=== PATIENT | female | born 2000 | race Caucasian/White ===

== ENCOUNTER 2022-02-09 17:15 | Emergency (ER) | payer BC, SELFPAY ==
[2022-02-09 17:16] VITALS: BP 114/67; PULSE 75; RESP 16; TEMP 37.1; O2SAT 98; BMI 33.6
--- NOTE | 2022-02-09 17:41 | EDS_ITS ---
HPI <HOLLAND Mead - Last Filed: 02/09/22 18:18> History of Present Illness Chief Complaint: Abscess Narrative Narrative: Patient noted bloody and sometimes purulent drainage in her underwear for the last 3 to 4 weeks. Today she noticed an area of swelling in her gluteal cleft. Her mom pushed on it and expressed purulent drainage. She went to the [facility] and a cleansed the area and applied a bandage and sent her to the ER. Patient denies any history of similar symptoms. She is having normal bladder and bowel movements. No history of bloody or loose stools. PFSH <HOLLAND Mead - Last Filed: 02/09/22 18:18> PFSH Medical History no medical history Home Medications guanfacine 3 mg tablet,extended release 24 hr 3 mg PO DAILY 02/09/22 [History Last Taken Unknown] lisdexamfetamine 60 mg capsule (Vyvanse) 60 mg PO DAILY 02/09/22 [History Last Taken Unknown] sertraline 25 mg tablet 30 mg PO DAILY 02/09/22 [History Last Taken Unknown] sulfamethoxazole 800 mg-trimethoprim 160 mg tablet 1 tab PO BID #20 TABLETS 02/09/22 [Rx Last Taken Unknown] Allergy/AdvReac Type Severity Reaction Status Date / Time No Known Allergies Allergy Verified 02/09/22 17:18 Surgical History no surgical history Social History Smoking Status: Never smoker ROS <HOLLAND Mead - Last Filed: 02/09/22 18:18> ROS ED ROS Narrative Constitutional: Negative for fever, chills, malaise. Eyes: Negative for visual change. ENT: Negative for sore throat, ear pain, rhinorrhea. CVS: Negative for palpitations, chest pain, syncope. Respiratory: Negative for shortness of breath, cough, orthopnea. GI: Negative for abdominal pain, nausea, vomiting, diarrhea, constipation, melena, hematochezia. : Negative for dysuria, hematuria or frequency. Neuro: Negative for headache. Skin: Negative for rash, abscess, or wound. Musc: Negative for joint pain, swelling, trauma. Heme: Negative for easy bruising, bleeding, lymphadenopathy. EXAM <HOLLAND Mead Last Filed: 02/09/22 18:18> Physical Exam Narrative Exam Narrative: CONST: Patient sitting in no acute distress. EYES: Normal inspection. NECK: Normal inspection. RESP: No respiratory distress, CTAB. CVS: Regular rate and rhythm, no murmur, no gallop. ABD: Soft and nontender, no guarding or rebound, nondistended. JANEL: In the midline gluteal cleft there is a pinhole opening. There is no surrounding erythema. No tenderness to palpation and no drainage is expressed. The external anal sphincter itself appears normal. EXTREMITIES: Normal appearance, no pedal edema. NEURO: Oriented x4. PSYCH: Normal affect. Const Vital Signs: 02/09/22 17:16 Temperature 98.7 F Temperature Source Temporal Pulse Rate 75 Respiratory Rate 16 Blood Pressure 114/67 Blood Pressure Mean 82 Pulse Ox 98 Oxygen Delivery Method Room Air <Dr. Lele Hollingsworth MD - Last Filed: 02/09/22 18:37> Physical Exam Const Vital Signs: 02/09/22 17:16 Temperature 98.7 F Temperature Source Temporal Pulse Rate 75 Respiratory Rate 16 Blood Pressure 114/67 Blood Pressure Mean 82 Pulse Ox 98 Oxygen Delivery Method Room Air GI GI Narrative: Agree with above, but I am able to express purulent material, scant amount of it, from the opening that is present already. Mildly tender. [facility] <HOLLAND Mead - Last Filed: 02/09/22 18:18> [facility] Narrative Medical decision making narrative: Patient appears to have a pinhole opening or tract where a previous pilonidal cyst drained. Its in the midline gluteal cleft. Mom states she had expressed purulent drainage earlier today. Right now there is no fluid expressible no surrounding signs of cellulitis. No indication for antibiotics. She will be referred to general surgery for outpatient management and was given return precautions. <Dr. Lele Hollingsworth MD - Last Filed: 02/09/22 18:37> [facility] Narrative Medical decision making narrative: Patient appears to have a pinhole opening or tract where a previous pilonidal cyst drained. Its in the midline gluteal cleft. Mom states she had expressed purulent drainage earlier today. Right now there is no fluid expressible no surrounding signs of cellulitis. No indication for antibiotics. She will be referred to general surgery for outpatient management and was given return precautions. Seen and evaluated independently and in conjunction with physician blacksmith assistant. Agree with notes above unless documented otherwise. Patient is well-appearing. There is some purulent discharge expressible from the opening, and I agree that this is a pilonidal abscess that is mostly drained it does not require incision and drainage at this time. I think doing sitz bath and placing her on antibiotic would be reasonable. Referred to surgery as an outpatient, parents are here and suggest possibly having her follow-up with general surgery or colorectal at home since she has winter break in 3 weeks which I think would also be reasonable. Discharge Plan Triage Chief Complaint: Abscess ED Midlevel Provider: Iman Pugh ED Provider: Lele Hollingsworth Dx/Rx/DC Orders Clinical Impression: Pilonidal abscess Instructions: Taking a Sitz Bath, ED Cyst Pilonidal Infec Abx Only Prescriptions: New sulfamethoxazole-trimethoprim [sulfamethoxazole-trimethoprim] 800-160 mg tablet 1 tab PO BID Qty: 20 0RF No Action sertraline 25 mg Tablet 30 mg PO DAILY Vyvanse 60 mg Capsule 60 mg PO DAILY guanfacine 3 mg Tablet Extended Release 24 Hr 3 mg PO DAILY Primary Care Provider: [facility] ,Out of Referrals: Jason Lepe MD [Med Staff - Active Staff] - [facility] Doctor,Out of [Primary Care Provider] - Activity Restrictions/Additional Instructions: Call for an appointment with the general surgeon. Soak in warm soapy water 1-2 times per day for as long as needed until no more drainage on the dressing. Keep area clean, change dressing at least twice daily, you may stop when there is no more discharge and you do not need to do sits baths anymore. If worsening return to the ER. Disposition Disposition: Home, Self Care
[2022-02-09] MEDS: Smz/Tmp Ds Tablet 1 TABLET PO (18:43)
== END 2022-02-09 18:46 | disposition home or self-care (01) ==
LOC: ED 18:36
PROVIDERS: Emergency Provider Emergency Medicine; PCP Pediatrics; Visit Provider Emergency Medicine
DX: L05.01 Pilonidal cyst with abscess (principal); Z79.899 Other long term (current) drug therapy
CPT/HCPCS: 99283

== ENCOUNTER 2022-03-10 16:29 | Emergency (ER) | payer BC, SELFPAY ==
[2022-03-10 16:33] VITALS: BP 153/136; PULSE 107; RESP 18; TEMP 36.5; O2SAT 97; BMI 32.8
--- NOTE | 2022-03-10 17:05 | EX.ED.VIS.PS ---
HPI HPI - Psych History of Present Illness Chief Complaint: Suicidal Informant: patient and friend Narrative Narrative: Patient presents to the emergency department. I asked her why she here and she says she does not have any idea. She does not remember. She has trouble remembering. She has a friend come and that helps her. Evidently the patient had a nervous breakdown in her Hungarian class today. She was sent to [facility] counseling. There were concerns of flight of ideas and suicidal thoughts and she was sent here. Patient does have a history of ADHD. She is on meds for this. She takes them sporadically. She does admit to poor sleep recently but also has a chronic history of poor sleep. She admits to some thoughts of suicide but no specific plan. But there were mentions of jumping in front of a car at the college counselor's office. It does not sound like she has been using any drugs or spending money or doing abnormal activities. I do not get a report of a history of roopa although her story sounds like she has been having some problems with this recently. She is not focusing. She is not making appointments. She is forgetting what she has to do. She has had these problems long-term for years but they are worse since starting college. She is not having any headache or focal complaints. PFSH PFSH Home Medications guanfacine 3 mg tablet,extended release 24 hr 3 mg PO DAILY 02/09/22 [History Last Taken Unknown] lisdexamfetamine 60 mg capsule (Vyvanse) 60 mg PO DAILY 02/09/22 [History Last Taken Unknown] sertraline 25 mg tablet 30 mg PO DAILY 02/09/22 [History Last Taken Unknown] Allergy/AdvReac Type Severity Reaction Status Date / Time No Known Allergies Allergy Verified 03/10/22 17:54 Social History Smoking Status: Never smoker ROS ROS ED Constitutional Constitutional ED: Denies chills or fever(s) Eyes Eyes: Denies change in vision ENT ENT ED: Denies sore throat Cardiovascular Cardiovascular: Denies chest pain or palpitations Respiratory/Chest Respiratory/Chest: Denies cough Gastrointestinal Gastrointestinal: Denies nausea or vomiting Musculoskeletal Musculoskeletal: Denies myalgias Neurologic Neurologic: Denies headache(s), paresthesias or weakness Psychiatric Psychiatric: Reports anxiety, suicidal thoughts and other Details: Patient's only suicidal thought occurred over at the [facility]. Somebody asked her if she is ever thought about hurting herself or like stepping in front of a car while in traffic. She evidently mentions like she could do that or something. But she had never had those thoughts on her own. She has no plan. She hasthoughts of suicide. She has thought of them occasionally over the last 3 years but nothing new or different. Endocrine Endocrinology: Denies polydipsia or polyuria Allergic/Immunologic Allergic/Immunologic ED: Denies urticaria EXAM Physical Exam Const Vital Signs: 03/10/22 16:33 03/10/22 17:39 Temperature 97.7 F L Temperature Source Temporal Pulse Rate 107 H Respiratory Rate 18 17 Blood Pressure 153/136 H Blood Pressure Mean 141 Pulse Ox 97 Oxygen Delivery Method Room Air Room Air Positive well nourished and well developed General Appearance ED: well developed and NAD; Negative for pallor HEENT Reports moist mucous membranes atraumatic Eyes General Eye ED: Negative for scleral icterus Neck no lymphadenopathy Resp normal respiratory effort and clear to auscultation bilaterally Cardio no murmurs Rate: regular rate Rhythm: regular rhythm GI non-tender Back/Spine no CVA tenderness Extremity normal to inspection Neuro Sensorium / Orientation: alert, oriented to person, oriented to place and oriented to time Psych Psych Narrative: Patient is a little bit inappropriately happy. She seems to have a little trouble following conversations at times. She is preoccupied with her friends. But there is no absolute disorientation. Skin General Skin Exam: Negative for jaundice or pallor MDM MDM MDM Narrative Medical decision making narrative: When pushed, patient's memory and thought is just fine. She is not suicidal. We had our social work see her. She does not feel she is suicidal or needs to be admitted. Patient does not feel she would benefit from this. Plan will be to get outpatient counseling which she is currently not in. She is given information on this. We have talked to the [facility]. She is going to stay at the [facility] tonight just to get a break. If there are any further issues she will return. Discharge Plan Triage Chief Complaint: Suicidal ED Provider: Roland Martínez Dx/Rx/DC Orders Clinical Impression: ADHD, Situational stress Instructions: Responding Better to Stress Prescriptions: No Action sertraline 25 mg Tablet 30 mg PO DAILY Vyvanse 60 mg Capsule 60 mg PO DAILY guanfacine 3 mg Tablet Extended Release 24 Hr 3 mg PO DAILY sulfamethoxazole-trimethoprim [sulfamethoxazole-trimethoprim] 800-160 mg tablet 1 tab PO BID Qty: 20 0RF Primary Care Provider: Saulo Emanuel Referrals: [facility] Doctor,Out of [Non-Staff] - Activity Restrictions/Additional Instructions: Follow-up with counseling services as discussed. Disposition Disposition: Home, Self Care
[2022-03-10 17:39] VITALS: RESP 17
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
[2022-03-10 18:01] VITALS: RESP 16
--- NOTE | 2022-03-11 16:26 | CM.ED ---
HUNTER Note SW called patient. She said that she is doing better. She said that she went to class and felt good about her classes. SW asked if patient had received call from IOP/PHP and patient said that there had been call at 9:30 but no voice mail left. SW advised patient that she can call [facility] IOP/PHP for more information and patient siad that she will look into it further. SW also advised that patient can always follow up with counseling at [facility]. Kim STEWART
== END 2022-03-10 18:03 | disposition home or self-care (01) ==
PROVIDERS: Emergency Provider Emergency Medicine; PCP Pediatrics; Visit Provider Emergency Medicine
DX: F43.9 Reaction to severe stress, unspecified (principal); F90.9 Attention-deficit hyperactivity disorder, unspecified type; F41.9 Anxiety disorder, unspecified; Z79.899 Other long term (current) drug therapy
CPT/HCPCS: 99284

== ENCOUNTER 2022-06-24 15:31 | Emergency (ER) | payer BC, SELFPAY ==
[2022-06-24 15:32] VITALS: BP 122/96; PULSE 103; RESP 14; TEMP 36.2; O2SAT 96; BMI 33.3
--- NOTE | 2022-06-24 17:56 | EDS_ITS ---
HPI History of Present Illness Chief Complaint: Wound Detail of Chief Complaint: To ER because concern postop wound is infected Informant: patient Onset/Context/Timing Onset: - (HPI narrative) Context: Gradual Onset Timing: Continuous Quality: Excision of pilonidal cyst at outside facility Location: Gluteal cleft Current Severity: Concern for infection Worsened by: Nothing Relieved by: Nothing Associated Symptoms Associated Symptoms: Patient had episode of vomiting x1 in the cafeteria Narrative Narrative: Patient is a 42-year-old female with history of ADHD and depression who was sent to the emergency room by the nurse at the [facility] because of concern for postoperative wound infection. Patient reported subjective fever. She had episode of vomiting while walking to the cafeteria. She presently denies nausea. She is had no diarrhea. She denies urologic symptoms. Denies headache, upper respiratory infectious symptoms or urologic symptoms Prior similar symptoms: Yes Recent Illness/Hospitalization: Yes (Surgery 3 to 4 weeks ago) [facility] Medical History (Updated 06/24/22 @ 18:[address] Hardik Smith MD) ADHD Anxiety Pilonidal cyst Home Medications guanfacine 3 mg tablet,extended release 24 hr 3 mg PO DAILY 02/09/22 [History Last Taken Unknown] lisdexamfetamine 60 mg capsule (Vyvanse) 60 mg PO DAILY 02/09/22 [History Last Taken Unknown] sertraline 25 mg tablet 30 mg PO DAILY 02/09/22 [History Last Taken Unknown] Allergy/AdvReac Type Severity Reaction Status Date / Time No Known Allergies Allergy Verified 06/24/22 15:32 Social History (Updated 06/24/22 @ 17:[address] Hardik Smith MD) household members: family Smoking Status: Never smoker substance use type: does not use ROS ROS ED Constitutional Constitutional ED: Denies chills, fever(s), subjective, sweats or weight loss Eyes Eyes: Denies blurry vision, change in vision or diplopia ENT ENT ED: Denies ear pain, rhinorrhea or sore throat Cardiovascular Cardiovascular: Denies chest pain or palpitations Respiratory/Chest Respiratory/Chest: Denies cough, dyspnea or dyspnea on exertion Gastrointestinal Gastrointestinal: Reports nausea and vomiting; Denies abdominal pain or diarrhea Genitourinary Genitourinary ED: Denies dysuria, hematuria or urinary frequency Musculoskeletal Musculoskeletal: Denies arthralgias, back pain, myalgias or neck pain Integumentary Reports other Details: Postop wound infection Neurologic Neurologic: Denies headache(s) or paresthesias Psychiatric Psychiatric: Reports anxiety Hematologic/Lymphatic Hematologic/Lymphatic: Reports systems reviewed and no addt'l complaints, except as documented EXAM Physical Exam Const Vital Signs: 06/24/22 15:32 Temperature 97.2 F L Temperature Source Temporal Pulse Rate 103 H Respiratory Rate 14 Blood Pressure 122/96 H Blood Pressure Mean 104 Pulse Ox 96 Oxygen Delivery Method Room Air Positive well nourished, well developed and obese General Appearance ED: well developed and NAD; Negative for cyanotic or diaphoretic Nutritional Appearance: obese HEENT Reports moist mucous membranes HEENT Narrative: Atraumatic normocephalic. Ears normal. Nares patent. Mucosa moist. Eyes PERRL and EOMs intact bilaterally General Eye ED: Negative for pale conjunctiva or scleral icterus Neck no lymphadenopathy, supple and no JVD Chest Wall inspection of chest normal and palpation of chest normal Resp normal respiratory effort and clear to auscultation bilaterally Cardio regular rate, regular rhythm, S2 normal heart sound and no murmurs GI GI Narrative: Patient has a well-healing wound with granulation tissue noted. There is slight purple discoloration which is a normal postoperative finding. There is no erythema, warmth, induration, fluctuance and there is no lymphangitis. There is no evidence of infection Extremity normal to inspection Neuro oriented x3 and CN's II-XII intact bilaterally Sensorium / Orientation: alert Skin Skin Narrative: Postop wound healing by secondary intention without evidence infection MDM MDM MDM Narrative Medical decision making narrative: With history of 1 episode of vomiting and no history of renal disease, diabetes laboratory studies are not indicated. Patient's wound is not infected. We will have nurse instruct how to do wet-to-dry dressing changes. Discharge Plan Triage Chief Complaint: Wound ED Provider: Hardik Smith Dx/Rx/DC Orders Clinical Impression: Nausea & vomiting, Postop check Prescriptions: No Action sertraline 25 mg Tablet 30 mg PO DAILY Vyvanse 60 mg Capsule 60 mg PO DAILY guanfacine 3 mg Tablet Extended Release 24 Hr 3 mg PO DAILY Primary Care Provider: Saulo Emanuel Referrals: Saulo Emanuel MD [Primary Care Provider] - As Needed Disposition Disposition: Home, Self Care
--- NOTE | 2022-06-24 18:17 | ED.RN ---
THIS RN SHOWED PT HOW TO DO WET TO DRY DRESSING
== END 2022-06-24 18:18 | disposition home or self-care (01) ==
PROVIDERS: Emergency Provider Emergency Medicine; PCP Pediatrics; Visit Provider Emergency Medicine
DX: Z48.00 Encounter for change or removal of nonsurgical wound dressing (principal); R11.2 Nausea with vomiting, unspecified; E66.9 Obesity, unspecified
CPT/HCPCS: 99283